=== PATIENT | female | born 1990 | race African-American/Black ===

== ENCOUNTER 2018-05-13 01:06 | Emergency (ER) | payer MEDICAID ==
[~2018-05-13] VITALS: Ht 165.1 cm; Wt 122.0 kg
[2018-05-13 01:44] VITALS: BP 118/81
== END 2018-05-13 07:46 | disposition left against medical advice (07) ==
LOC: ER 01:06
DX: Z04.1 Encounter for examination and observation following transport accident (principal); Z53.21 Procedure and treatment not carried out due to patient leaving prior to being seen by health care provider